=== PATIENT | male | born 1945 | race Caucasian/White ===

== ENCOUNTER 2021-01-24 18:42 | Day surgery (SDCO) | payer MEDICARE, OTHER ==
[~2021-01-24] VITALS: Ht 185.4 cm; Wt 92.1 kg
[~2021-01-24 18:42] MED LIST: ALLOPURINOL100 MG PO; ASPIRIN325 MG PO; AZITHROMYCIN250 MG PO; CILOSTAZOL100 MG PO; COZAAR100 MG PO; GLUCOTROL5 MG PO; ISOSORBIDE MONO60 MG PO; LEVEMIR VI100 UNITS/ SQ; LIPITOR40 MG PO; LOPID600 MG PO; MUCINEX 600MG600 MG PO; NITROQUIK SL0.4 MG SL; TENORMIN50 MG PO; ZETIA10 MG PO
[2021-01-24 22:49] LABS: BASOPHIL 0.3 % (0-2); EOSINOPHIL 2.1 % (0-7); HCT 32.6 % (42.0-52.0); HGB 11.4 g/dl (13.2-18.0); LYMPHOCYTE 20.8 % (15-48); MCH 33.5 pg (25.0-31.0); MCV 95.9 fL (78.0-100.0); MONOCYTE 9.4 % (0-12); NEUTROPHIL 67.1 % (41-80); NRBC 0; PLT 208 K/uL (150-400); RDW 12.6 % (11.5-14.0); WBC 6.2 K/uL (4.0-10.5)
[2021-01-24 23:17] LABS: ALBUMIN 2.8 g/dL (3.4-5.0); BILIRUBIN - TOTAL 0.5 mg/dL (0.2-1.0); BUN/CREAT RATIO (CALC) 18.6 RATIO; CREATININE 2.37 mg/dL (0.67-1.17); GLOBULIN (CALCULATION) 4.7 g/dL; POTASSIUM 3.8 mmol/L (3.5-5.1); TOTAL PROTEIN 7.5 g/dL (6.4-8.2)
[2021-01-24 23:21] LABS: PRO-BNP 468 pg/mL (<450)
[2021-01-25 01:16] LABS: BILIRUBIN NEGATIVE (NEGATIVE); BLOOD NEGATIVE Ery/uL (NEGATIVE); CLARITY CLEAR (CLEAR); COLOR YELLOW (YELLOW); GLUCOSE (U) NORMAL (NORMAL); LEUKOCYTES NEGATIVE Leu/uL (NEGATIVE); NITRITE NEGATIVE (NEGATIVE); PROTEIN 2+ mg/dL (NEGATIVE); SPECIFIC GRAVITY >=1.030 (1.001-1.030); pH 5.5 (5.0-9.0)
[2021-01-25 01:28] LABS: BACTERIA 1+; SQUAMOUS EPITHELIAL CELLS RARE; URINARY RBC RARE; URINARY WBC RARE
[2021-01-25] MEDS ORDERED: AZITHROMYCIN250 MG PO (02:32)
[2021-01-25 23:07] LABS: CREATININE 1.82 mg/dL (0.67-1.17); MAGNESIUM 2.1 mg/dL (1.8-2.4); POTASSIUM 4.7 mmol/L (3.5-5.1)
--- NOTE | 2021-01-25 23:45 | NUR ---
2200 [employer] CALLED ON PT. PT HAVING CHEST PRESSURE. PT RATES 6/10. PT STATES HAS HAD EPISODES LIKE THIS BEFORE AND RESOLVED WITH NTG SL. VS TEMP 97.5, HR 92, RR 20, BP 194/94. O2 SAT 95 2L NC. EKG OBTAINED; NO ST ELEVATION PRESENT.
--- NOTE | 2021-01-25 23:48 | NUR ---
2220 DR. VILLASENOR NOTIFIED OF PT'S CHEST PRESSURE. ORDERS RECEIVED FOR LABS, EKG AND SL NTG. PTS CHEST PRESSURE RELIEVED WITH NTG SL X 2. VSS. 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 PT INSTRUCTED IF CHEST PRESSURE RETURNS NOTIFY RN.
[2021-01-25 23:53] LABS: CORONAVIRUS 2019 SARS-COV-2 NEGATIVE (NEGATIVE); INFLUENZA A NAA NEGATIVE (NEGATIVE)
[2021-01-26 06:45] LABS: BASOPHIL 0.1 % (0-2); EOSINOPHIL 0 % (0-7); HCT 29.4 % (42.0-52.0); HGB 10.3 g/dl (13.2-18.0); MCH 33.6 pg (25.0-31.0); MCV 95.8 fL (78.0-100.0); MONOCYTE 2.9 % (0-12); MPV 9.6 fL (6.0-9.5); NEUTROPHIL 90.4 % (41-80); NRBC 0; PLT 208 K/uL (150-400); RBC 3.07 M/uL (4.70-6.00); RDW 12.2 % (11.5-14.0); WBC 8.3 K/uL (4.0-10.5)
[2021-01-26 06:55] LABS: BUN/CREAT RATIO (CALC) 22.9 RATIO; CREATININE 1.66 mg/dL (0.67-1.17); MAGNESIUM 2.2 mg/dL (1.8-2.4); POTASSIUM 4.6 mmol/L (3.5-5.1)
[2021-01-26 13:42] LABS: BILIRUBIN NEGATIVE (NEGATIVE); BLOOD TRACE-INTACT Ery/uL (NEGATIVE); CLARITY CLEAR (CLEAR); COLOR YELLOW (YELLOW); GLUCOSE (U) 3+ mg/dL (NORMAL); LEUKOCYTES NEGATIVE Leu/uL (NEGATIVE); NITRITE NEGATIVE (NEGATIVE); PROTEIN 2+ mg/dL (NEGATIVE); UROBILINOGEN 0.2 mg/dL (0.2-1.0)
[2021-01-26 14:04] LABS: BACTERIA 3+; URINARY WBC RARE
--- NOTE | 2021-01-26 15:40 | NUR ---
REPORT TO [facility] FOR TRANSFER AT 1535, EMS CALLED FOR TRANSPORT AT 1539
== END 2021-01-26 16:42 | disposition other institution (70) ==
LOC: FER 18:42 → FMS 01-25 05:44
PROVIDERS: Allergy & Immunology; Emergency Medicine; Hospitalist; Nurse Practitioner; ADMIT Hospitalist
DX: I21.4 Non-ST elevation (NSTEMI) myocardial infarction (principal); J44.0 Chronic obstructive pulmonary disease with (acute) lower respiratory infection; J20.9 Acute bronchitis, unspecified; N17.9 Acute kidney failure, unspecified; N39.0 Urinary tract infection, site not specified; I13.10 Hypertensive heart and chronic kidney disease without heart failure, with stage 1 through stage 4 chronic kidney disease, or unspecified chronic kidney disease; E11.22 Type 2 diabetes mellitus with diabetic chronic kidney disease; N18.9 Chronic kidney disease, unspecified; R79.89 Other specified abnormal findings of blood chemistry; I25.10 Atherosclerotic heart disease of native coronary artery without angina pectoris; Z20.822 Contact with and (suspected) exposure to COVID-19; K21.9 Gastro-esophageal reflux disease without esophagitis; E78.00 Pure hypercholesterolemia, unspecified; Z79.4 Long term (current) use of insulin; Z79.02 Long term (current) use of antithrombotics/antiplatelets; Z95.1 Presence of aortocoronary bypass graft
CPT/HCPCS: 36415; 36600; 70450; 71045; 80048; 80053; 81001; 82803; 82962; 83605; 83735; 83880; 84484; 85025; 87040; 87088; 93005; 94010; 94640; 94664; 94667; 94668; G0378; J0456; J0696; J1650; J2550; J2930; J7030; J7050; U0002